=== PATIENT | male | born 1965 | race African-American/Black ===

== ENCOUNTER 2017-09-23 09:27 | Inpatient (IN) | payer MEDICAID, OTHER ==
[~2017-09-23] VITALS: Ht 177.8 cm; Wt 81.6 kg
[2017-09-23] MEDS ORDERED: LISINOPRIL10 MG ORAL (09:41)
[2017-09-23 09:45] VITALS: BP 160/120
--- NOTE | 2017-09-23 09:50 | Emergency Room Report ---
History of Present Illness General Chief Complaint: Chest Pain Source: Patient, EMS Present Illness HPI 52YOM BIBEMS for SOB for 1 week He states he hasn't taken his medication in over a month, meds for CHF, hypertension. Hhe takes fosinopril, may be used to take water pill not sure. Patient states shortness of breath worse when he lays down, rides his bike or walks multiple blocks. Denies associated fever, chills, cough, abdominal pain, nausea or vomiting. Repeatedly asking for sandwich Allergies: Coded Allergies: No Known Allergies (Verified , 04/20/11) Patient History Past Medical History: HTN, CHF Past Surgical History: none Pertinent Family History: none Social History: Denies: smoking, alcohol use, drug use Immunizations: UTD Reviewed Nursing Documentation: PMH: Agreed; PSxH: Agreed Nursing Documentation-PMH Past Medical History: No History, Except For Hx Hypertension: Yes Review of Systems All Other Systems: negative except mentioned in HPI Physical Exam Vital Signs Date Time Temp Pulse Resp B/P (MAP) Pulse Ox O2 Delivery O2 Flow Rate FiO2 09/23/17 09:19 98.1 102 22 148/108 98 Room Air 98.1 Sp02 EP Interpretation: reviewed, normal General Appearance: normal inspection, well appearing, no apparent distress, alert, GCS 15, non-toxic, other - Well appearing, no acut Head: normocephalic, atraumatic Eyes: bilateral eye PERRL, bilateral eye EOMI ENT: normal ENT inspection, hearing grossly normal, normal pharynx, no angioedema, normal voice, TMs + canals normal, uvula midline, moist mucus membranes Neck: normal inspection, full range of motion, supple, thyroid normal, no meningismus, no bony tend Respiratory: normal inspection, lungs clear, normal breath sounds, no rhonchi, no respiratory distress, no retraction, no accessory muscle use, no wheezing, speaking full sentences Cardiovascular #1: regular rate, rhythm, no edema, no JVD, normal capillary refill Gastrointestinal: normal inspection, normal bowel sounds, non tender, soft, no mass, no peritonitis, non-distended, no guarding, no hernia, no pulsatile mass Genitourinary: no CVA tenderness Musculoskeletal: normal inspection, back normal, normal range of motion, no calf tenderness, pelvis stable, Vanessa's Sign negative Neurologic: normal inspection, alert, oriented x3, responsive, librarian specialist III-XII nml as tested, motor strength/tone normal, cerebellar normal, normal gait, speech normal Psychiatric: normal inspection, judgement/insight normal, mood/affect normal, no suicidal/homicidal ideation, no delusions Skin: normal inspection, normal color, no rash Lymphatic: normal inspection, no adenopathy Medical Decision Making Diagnostic Impression: Primary Impression: SOB (shortness of breath) Additional Impressions: HTN (hypertension) Qualified Codes: I10 - Essential (primary) hypertension Cocaine abuse Amphetamine abuse ER Course Vital signs significant for tachycardia On exam, no acute distress, no wheezing rales or rhonchi. No accessory muscle use Unlikely to be in flash pulmonary edema or significant CHF Was given dose of Lisinopril that he takes and refill for Lisinopril for 2 weeks Trop+ Cocaine, meth+ - likely cause of tachycardia Elevated BNP however 100% on RA, not hypoxic, and no acute CHF on CXR No acute ischemia on ECG Was given ASA, IV ativan Tele Admit for cocaine chest pain/ACS rule out Dr Arnold for Dr Wright as per insurance, endorsed [id number] EKG Diagnostic Results Rate: tachycardiac Rhythm: NSR ST Segments: no acute changes ASA given to the pt in ED: Yes Rhythm Strip Diag. Results EP Interpretation: yes Rate: 116 Rhythm: NSR Chest X-Ray Diagnostic Results Chest X-Ray Diagnostic Results : Chest X-Ray Ordered: Yes # of Views/Limited/Complete: 1 View Indication: Chest Pain EP Interpretation: Yes Interpretation: no consolidation, no effusion, no pneumothorax, no acute cardiopulmonary disease Impression: No acute disease Electronically Signed by: Dr Maria Elena López MD Last Vital Signs Date Time Temp Pulse Resp B/P (MAP) Pulse Ox O2 Delivery O2 Flow Rate FiO2 09/23/17 09:45 118 30 160/120 97 Room Air 09/23/17 09:19 98.1 98.1 Status: improved Disposition: ADMITTED INPATIENT Condition: Serious MARIA ELENA LÓPEZ M.D. Sep 23, 2017 09:50
[2017-09-23 10:04] LABS: EOSINOPHILS % (AUTO) 0.5 % (0.0-3.0); HEMATOCRIT 43.4 % (42.0-52.0); HEMOGLOBIN 14.6 G/DL (14.2-18.0); LYMPHOCYTES % (AUTO) 22.2 % (20.0-45.0); MEAN CORPUSCULAR VOLUME 84 FL (80-99); NEUTROPHILS % (AUTO) 71.2 % (45.0-75.0); PLATELET COUNT 376 K/UL (150-450); RED BLOOD COUNT 5.16 M/UL (4.70-6.10); RED CELL DISTRIBUTION WIDTH 13.2 % (11.6-14.8); WHITE BLOOD COUNT 9.9 K/UL (4.8-10.8)
[2017-09-23] MEDS ORDERED: Lisinopril 10mg tab ORAL ONE (10:15)
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
[2017-09-23 10:29] LABS: ANION GAP 6 mmol/L (5-15); BLOOD UREA NITROGEN 12 mg/dL (7-18); CALCIUM 8.6 MG/DL (8.5-10.1); CARBON DIOXIDE 29 MMOL/L (21-32); CHLORIDE 108 MMOL/L (98-107); POTASSIUM 3.7 MMOL/L (3.5-5.1); SODIUM 143 MMOL/L (136-145)
[2017-09-23] MEDS ORDERED: LORazepam Inj 2mg/ml 1ml IV ONE ×2 (10:45→11:45)
[2017-09-23 10:46] LABS: ALANINE AMINOTRANSFERASE 91 U/L (12-78); ALBUMIN 3.2 G/DL (3.4-5.0); ALBUMIN/GLOBULIN RATIO 0.9 (1.0-2.7); ALKALINE PHOSPHATASE 104 U/L (46-116); ASPARTATE AMINO TRANSFERASE 38 U/L (15-37); BILIRUBIN,TOTAL 0.8 MG/DL (0.2-1.0); CREATINE KINASE 147 U/L (26-308)
[2017-09-23 12:07] VITALS: BP 154/125
[2017-09-23] MEDS ORDERED: LORazepam Inj 2mg/ml 1ml IV PRN (14:00)
[2017-09-23] MEDS ORDERED: Nitroglycerin Subl 0.4mg tab SL PRN (14:00)
--- NOTE | 2017-09-23 19:45 | History and Physical Report ---
DATE OF ADMISSION: 09/23/2017 CHIEF COMPLAINT: The patient is a 52-year-old male who presents with chief complaint of shortness of breath. HISTORY OF PRESENT ILLNESS: The patient has a history of congestive heart failure. The patient states he ran out of his medications a month ago. The patient states over the last month, he has become increasingly short of breath. The patient is unable to walk for more than half a block without becoming short of breath. The patient states he is unable to ride his bike. The patient presented to [facility] emergency room. The patient was found to have elevated BNP. The patient was also found to have elevated troponin. The patient was admitted for acute exacerbation of congestive heart failure. PAST MEDICAL HISTORY: Significant for: 1. Congestive heart failure. 2. Hypertension. PAST SURGICAL HISTORY: The patient denies. CURRENT MEDICATIONS: The patient denies. ALLERGIES: No known drug allergies. SOCIAL HISTORY: The patient is . The patient denies tobacco or alcohol use. REVIEW OF SYSTEMS: CONSTITUTIONAL: The patient denies weight loss or weight gain. The patient denies fevers or chills. HEENT: The patient denies ear or throat pain. The patient denies headache. CARDIOVASCULAR: The patient denies palpitations or chest pain. CHEST: The patient complains of shortness of breath as above. The patient denies wheezes. ABDOMEN: The patient denies nausea, vomiting, diarrhea, or constipation. GENITOURINARY: The patient denies dysuria or increased frequency of urination. NEUROMUSCULAR: The patient denies seizures or generalized weakness. PHYSICAL EXAMINATION: VITAL SIGNS: Temperature 98.1 degrees, respirations 22, pulse 102 to 120, and blood pressure 148/108. GENERAL: The patient is a well-developed, well-nourished male who is in moderate respiratory distress. HEENT: Eyes, pupils are equal and responsive to light and accommodation. Extraocular movements are intact. NECK: Supple without lymphadenopathy. CHEST: Few crackles at bilateral bases. Otherwise, without wheezes or rales. CARDIOVASCULAR: Regular rhythm. Tachycardic. S1 and S2 are normal without murmurs, rubs, or gallops. ABDOMEN: Soft, nontender, and nondistended. Positive bowel sounds. No evidence of hepatosplenomegaly. No rebound or guarding noted. RECTAL: Refused. GENITAL: Refused. EXTREMITIES: Negative for clubbing, cyanosis, or edema. NEUROLOGICAL: Cranial nerves II through XII grossly intact without focal deficits. Motor strength is 5/5 bilaterally intact. Deep tendon reflexes are 2+ plantar. LABORATORY STUDIES: WBC 9.9, hemoglobin 14.6, hematocrit 43.4, and platelets 376,000. Sodium 143, potassium 3.7, chloride 108, CO2 29, BUN 12, creatinine 1.0, and glucose 107. Troponin elevated at 0.17. BNP elevated at 9173. Chest x-ray failed to demonstrate pulmonary vascular congestion. ASSESSMENT: This is a 52-year-old male with: 1. Shortness of breath. 2. Acute exacerbation of congestive heart failure. 3. Elevated troponin. 4. Hypertension. 5. Tachycardia. TREATMENT: 1. Congestive heart failure/elevated troponin/tachycardia. Cardiology consultation was obtained with Dr. Eder Lopez. We will follow recommendations of Cardiology. The patient may require Lasix as he did not receive Lasix in the emergency room. 2. Hypertension. The patient has been started empirically on lisinopril. Raul Blount M.D. DR: Alli JOB#: [id number] CC:
[2017-09-23] MEDS: Spironolactone 25mg tab ORAL SCH (19:47)
[2017-09-23 20:00] VITALS: BP 158/116
[2017-09-23] MEDS: Atorvastatin 20mg tab ORAL SCH (21:49)
[2017-09-23] MEDS: Heparin 5000 units/ml inj SUBQ SCH (21:50)
[2017-09-24] VITALS: BP 167/99
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
[2017-09-24 04:00] VITALS: BP 151/89
[2017-09-24 07:07] LABS: BASOPHILS % (AUTO) 1.2 % (0.0-2.0); EOSINOPHILS % (AUTO) 0.9 % (0.0-3.0); HEMATOCRIT 42.8 % (42.0-52.0); LYMPHOCYTES % (AUTO) 24.5 % (20.0-45.0); MEAN CORPUSCULAR VOLUME 83 FL (80-99); MONOCYTES % (AUTO) 4.8 % (1.0-10.0); NEUTROPHILS % (AUTO) 68.7 % (45.0-75.0); PLATELET COUNT 359 K/UL (150-450); RED BLOOD COUNT 5.19 M/UL (4.70-6.10); RED CELL DISTRIBUTION WIDTH 13.1 % (11.6-14.8); WHITE BLOOD COUNT 11.7 K/UL (4.8-10.8)
[2017-09-24 07:23] LABS: ALANINE AMINOTRANSFERASE 63 U/L (12-78); ALBUMIN 2.8 G/DL (3.4-5.0); ALBUMIN/GLOBULIN RATIO 0.8 (1.0-2.7); ALKALINE PHOSPHATASE 97 U/L (46-116); ANION GAP 8 mmol/L (5-15); ASPARTATE AMINO TRANSFERASE 27 U/L (15-37); BLOOD UREA NITROGEN 14 mg/dL (7-18); CALCIUM 8.6 MG/DL (8.5-10.1); CARBON DIOXIDE 26 MMOL/L (21-32); CHLORIDE 106 MMOL/L (98-107); CHOLESTEROL 131 MG/DL (< 200); HDL CHOLESTEROL 57 MG/DL (40-60); POTASSIUM 3.5 MMOL/L (3.5-5.1); SODIUM 140 MMOL/L (136-145); TRIGLYCERIDES 39 MG/DL (30-150)
[2017-09-24 08:00] VITALS: BP 146/83
[2017-09-24] MEDS ORDERED: Lisinopril 10mg tab ORAL SCH (09:00)
[2017-09-24] MEDS: Spironolactone 25mg tab ORAL SCH (09:24)
[2017-09-24] MEDS: Aspirin Baby 81mg ORAL SCH (09:24)
[2017-09-24] MEDS: Heparin 5000 units/ml inj SUBQ SCH ×2 (09:26→21:21)
[2017-09-24 11:48] VITALS: BP 148/100
[2017-09-24 15:50] VITALS: BP 147/99
[2017-09-24 20:00] VITALS: BP 137/94
--- NOTE | 2017-09-24 21:17 | Cardiology Progress Note ---
Assessment/Plan Assessment/Plan 1. Acute systolic and diastolic heart failure, LVEF at 25% to 30%. Continue optimizing GDMT, daily BNP. 2. 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 However, cannot rule out non-ST elevation myocardial infarction type 2, although ECG does not show any evidence of ST- segment depression or T-wave inversions. Continue ASA and coreg. 3. Sinus tachycardia due to heart failure. Subjective Subjective Sinus tachycardia at 114. Objective Last 24 Hour Vital Signs Date Time Temp Pulse Resp B/P (MAP) Pulse Ox O2 Delivery O2 Flow Rate FiO2 09/24/17 15:50 98.3 114 19 147/99 98 Room Air 98.3 09/24/17 15:30 108 09/24/17 12:00 115 09/24/17 11:48 97.4 108 20 148/100 99 Room Air 97.4 09/24/17 09:24 100 09/24/17 09:24 100 146/83 09/24/17 09:24 146/83 09/24/17 08:00 97.8 100 19 146/83 97 Room Air 97.8 09/24/17 08:00 116 09/24/17 04:00 111 09/24/17 04:00 97.0 111 18 151/89 95 Room Air 97.0 09/24/17 00:00 98.0 114 20 167/99 95 Room Air 98.0 09/24/17 00:00 108 09/23/17 21:49 120 158/116 Intake and Output 09/23/17 09/24/17 19:00 07:00 Intake Total 480 ml 240 ml Output Total 800 ml Balance 480 ml -560 ml Intake Oral 480 ml 240 ml Output Urine Total 800 ml # Voids 1 # Bowel Movements 1 2D Echo: EF~25%, anteroseptal HK, RVSP 53 mmHg, Mod MR, Grade III LVDD ( restrictive) Laboratory Tests Test 09/24/17 06:50 White Blood Count 11.7 K/UL (4.8-10.8) H Red Blood Count 5.19 M/UL (4.70-6.10) Hemoglobin 15.0 G/DL (14.2-18.0) Hematocrit 42.8 % (42.0-52.0) Mean Corpuscular Volume 83 FL (80-99) Mean Corpuscular Hemoglobin 29.0 PG (27.0-31.0) Mean Corpuscular Hemoglobin Concent 35.1 G/DL (32.0-36.0) Red Cell Distribution Width 13.1 % (11.6-14.8) Platelet Count 359 K/UL (150-450) Mean Platelet Volume 6.5 FL (6.5-10.1) Neutrophils (%) (Auto) 68.7 % (45.0-75.0) Lymphocytes (%) (Auto) 24.5 % (20.0-45.0) Monocytes (%) (Auto) 4.8 % (1.0-10.0) Eosinophils (%) (Auto) 0.9 % (0.0-3.0) Basophils (%) (Auto) 1.2 % (0.0-2.0) Sodium Level 140 MMOL/L (136-145) Potassium Level 3.5 MMOL/L (3.5-5.1) Chloride Level 106 MMOL/L (98-107) Carbon Dioxide Level 26 MMOL/L (21-32) Anion Gap 8 mmol/L (5-15) Blood Urea Nitrogen 14 mg/dL (7-18) Creatinine 1.0 MG/DL (0.55-1.30) Estimat Glomerular Filtration Rate > 60 mL/min (>60) Glucose Level 101 MG/DL (74-106) Calcium Level 8.6 MG/DL (8.5-10.1) Total Bilirubin 1.0 MG/DL (0.2-1.0) Aspartate Amino Transf (AST/SGOT) 27 U/L (15-37) Alanine Aminotransferase (ALT/SGPT) 63 U/L (12-78) Alkaline Phosphatase 97 U/L (46-116) Troponin I 0.061 ng/mL (0.000-0.056) Pro-B-Type Natriuretic Peptide 7879 pg/mL (0-125) H Total Protein 6.2 G/DL (6.4-8.2) L Albumin 2.8 G/DL (3.4-5.0) L Globulin 3.4 g/dL Albumin/Globulin Ratio 0.8 (1.0-2.7) L Triglycerides Level 39 MG/DL (30-150) Cholesterol Level 131 MG/DL (< 200) LDL Cholesterol 78 mg/dL (<100) HDL Cholesterol 57 MG/DL (40-60) Cholesterol/HDL Ratio 2.3 (3.3-4.4) L Hepatitis B Surface Antigen Pending Hepatitis B Core IgM Antibody Pending Hepatitis Be Antigen Pending Hepatitis C Antibody Pending HIV (1&2) Antibody Rapid Negative (NEGATIVE) Objective HEENT: Atraumatic and normocephalic. Anicteric. Pupils are equal, round, and reactive to light and accommodation. Extraocular muscles intact. NECK: There is conjunctival injection. JVP is elevated about 15 cm. No carotid bruit. Carotid upstroke is hyperdynamic. CARDIOVASCULAR: Normal S1 and S2. There is presence of S4 and S3 or summation gallop with tachycardia. I do not appreciate any murmur. LUNGS: Diminished breath sounds in both bases. ABDOMEN: Soft, nontender, and nondistended. No hepatosplenomegaly. Positive bowel sounds. EXTREMITIES: No evidence of edema, clubbing, or cyanosis. ALPHONSO IVEY Sep 24, 2017 21:17
[2017-09-24] MEDS: Atorvastatin 20mg tab ORAL SCH (21:20)
[2017-09-25] VITALS: BP 136/93
[2017-09-25 04:00] VITALS: BP 142/98
[2017-09-25 08:00] VITALS: BP 135/90
--- NOTE | 2017-09-25 08:07 | Cardiology Report ---
APPROVED REPORT EXAM: Two-dimensional and M-mode echocardiogram with Doppler and color Doppler. INDICATION Chest Pain M-Mode DIMENSIONS IVSd1.0 (0.7-1.1cm)Left Atrium (MM)4.6 (1.6-4.0cm) LVDd5.8 (3.5-5.6cm)Aortic Root3.7 (2.0-3.7cm) PWd1.4 (0.7-1.1cm)Aortic Cusp Exc.1.7 (1.5-2.0cm) LVDs4.7 (2.5-4.0cm) PWs1.3 cm Technically difficult study due to poor acoustical windows. Patient moving. Normal left ventricular chamber size. Global left ventricular hypokinesis. Basal anterior septal and posterior dyskinesis. Left ventricular ejection fraction estimated to be 30-35%. Mild left ventricular hypertrophy. No evidence of pericardial or pleural effusion. Left cardiac chamber sizes are within normal limits. Mild right atrial enlargement by 2D. Focal aortic valve sclerosis with adequate cusp excursion. Thickened mitral valve leaflets with normal excursion. Mild mitral annulus and aortic root calcification. Pulmonic valve not well visualized. Normal tricuspid valve structure. IVC dilated at 3.0 cm minimal collapse with respiration indicate increased RA pressure. A color flow and spectral Doppler study was performed and revealed: No aortic regurgitation. Moderate to severe mitral regurgitation. Mitral diastolic velocities suggest reduced left ventricular relaxation c/w diastolic dysfunction grade 3. Mild tricuspid regurgitation. Tricuspid systolic velocities suggests peak right ventricular systolic pressure of 53mmHg Consistent with moderate pulmonary hypertension. Pulmonic regurgitation present.
[2017-09-25] MEDS ORDERED: Lisinopril 20mg tab ORAL SCH (09:00)
[2017-09-25] MEDS ORDERED: Carvedilol 6.25mg Tab ORAL SCH (09:00)
[2017-09-25] MEDS: Aspirin Baby 81mg ORAL SCH (10:39)
[2017-09-25] MEDS: Spironolactone 25mg tab ORAL SCH (10:40)
[2017-09-25] MEDS: Heparin 5000 units/ml inj SUBQ SCH (10:42)
[2017-09-25 10:53] VITALS: BP 135/90
[2017-09-25 11:13] LABS: BASOPHILS % (AUTO) 0.8 % (0.0-2.0); EOSINOPHILS % (AUTO) 0.4 % (0.0-3.0); HEMATOCRIT 43.9 % (42.0-52.0); HEMOGLOBIN 15.7 G/DL (14.2-18.0); LYMPHOCYTES % (AUTO) 15.5 % (20.0-45.0); MEAN CORPUSCULAR VOLUME 84 FL (80-99); MONOCYTES % (AUTO) 3.9 % (1.0-10.0); NEUTROPHILS % (AUTO) 79.4 % (45.0-75.0); PLATELET COUNT 375 K/UL (150-450); RED BLOOD COUNT 5.24 M/UL (4.70-6.10); WHITE BLOOD COUNT 14.5 K/UL (4.8-10.8)
[2017-09-25 11:35] LABS: ALANINE AMINOTRANSFERASE 48 U/L (12-78); ALBUMIN 2.9 G/DL (3.4-5.0); ALKALINE PHOSPHATASE 106 U/L (46-116); ANION GAP 8 mmol/L (5-15); ASPARTATE AMINO TRANSFERASE 21 U/L (15-37); BILIRUBIN,TOTAL 0.7 MG/DL (0.2-1.0); BLOOD UREA NITROGEN 21 mg/dL (7-18); CARBON DIOXIDE 27 MMOL/L (21-32); CHLORIDE 106 MMOL/L (98-107); CREATININE 1.1 MG/DL (0.55-1.30); POTASSIUM 4.2 MMOL/L (3.5-5.1); SODIUM 140 MMOL/L (136-145)
[2017-09-25] MEDS ORDERED: LISINOPRIL20 MG ORAL (12:15)
[2017-09-25] MEDS ORDERED: LANOXIN250 MCG ORAL (12:15)
[2017-09-25] MEDS ORDERED: ASPIRIN81 MG ORAL (12:15)
[2017-09-25] MEDS ORDERED: COREG6.25 MG ORAL (12:15)
--- NOTE | 2017-09-25 12:17 | Pulmonology Progress Note ---
Assessment/Plan Problems: (1) End-stage systolic heart failure (2) Dyspnea Assessment/Plan echo noted prescription given pt was advised to avoid Crack and cocaine. Subjective ROS Limited/Unobtainable: No Interval Events: feeling better Allergies: Coded Allergies: No Known Allergies (Verified , 04/20/11) Objective Last 24 Hour Vital Signs Date Time Temp Pulse Resp B/P (MAP) Pulse Ox O2 Delivery O2 Flow Rate FiO2 09/25/17 11:32 110 09/25/17 10:54 97.5 09/25/17 10:53 100 135/90 09/25/17 10:52 100 09/25/17 10:40 135/90 09/25/17 08:31 103 09/25/17 08:26 97.5 09/25/17 08:00 97.3 114 19 135/90 100 Room Air 97.3 09/25/17 06:33 142/98 09/25/17 04:00 107 09/25/17 04:00 97.5 110 20 142/98 98 Room Air 97.5 09/25/17 01:03 147/99 09/25/17 00:00 97.3 91 19 136/93 98 Room Air 97.3 09/25/17 00:00 91 09/24/17 21:30 147/99 09/24/17 20:00 97.7 107 18 137/94 98 Room Air 97.7 09/24/17 20:00 107 09/24/17 15:50 98.3 114 19 147/99 98 Room Air 98.3 09/24/17 15:30 108 Intake and Output 09/24/17 09/25/17 19:00 07:00 Intake Total 1050 ml 640 ml Output Total 400 ml Balance 1050 ml 240 ml Intake Oral 1050 ml 640 ml Output Urine Total 400 ml # Voids 5 General Appearance: cachetic HEENT: normocephalic, atraumatic Respiratory/Chest: chest wall non-tender, lungs clear Cardiovascular: normal peripheral pulses, normal rate Abdomen: normal bowel sounds, soft, non tender, no organomegaly Extremities: no cyanosis, no clubbing Skin: no ulcers Neurologic/Psychiatric: test department helper II-XII grossly normal Laboratory Tests 09/25/17 10:30: White Blood Count 14.5H, Red Blood Count 5.24, Hemoglobin 15.7, Hematocrit 43.9 , Mean Corpuscular Volume 84, Mean Corpuscular Hemoglobin 29.9, Mean Corpuscular Hemoglobin Concent 35.8, Red Cell Distribution Width 13.0, Platelet Count 375, Mean Platelet Volume 6.5, Neutrophils (%) (Auto) 79.4H, Lymphocytes ( %) (Auto) 15.5L, Monocytes (%) (Auto) 3.9, Eosinophils (%) (Auto) 0.4, Basophils (%) (Auto) 0.8, Sodium Level 140, Potassium Level 4.2, Chloride Level 106, Carbon Dioxide Level 27, Anion Gap 8, Blood Urea Nitrogen 21H, Creatinine 1.1, Estimat Glomerular Filtration Rate > 60, Glucose Level 123H, Calcium Level 9.0, Magnesium Level 1.8, Total Bilirubin 0.7, Aspartate Amino Transf (AST/SGOT ) 21, Alanine Aminotransferase (ALT/SGPT) 48, Alkaline Phosphatase 106, Troponin I 0.047, Total Protein 5.9L, Albumin 2.9L, Globulin 3.0, Albumin/ Globulin Ratio 1.0 Current Medications Medications (Trade) Dose Ordered Sig/Malvin Route PRN Reason Start Time Stop Time Status Last Admin Dose Admin Acetaminophen (Tylenol) 650 mg Q6H PRN ORAL Mild Pain/Temp > 100.5 09/25/17 07:30 10/25/17 07:29 09/25/17 08:26 Aspirin (ASA) 81 mg DAILY ORAL 09/24/17 09:00 10/24/17 08:59 09/25/17 10:39 Atorvastatin Calcium (Lipitor) 80 mg BEDTIME ORAL 09/23/17 21:00 10/23/17 20:59 09/24/17 21:20 Carvedilol (Coreg) 6.25 mg EVERY 12 HOURS ORAL 09/25/17 09:00 10/25/17 08:59 09/25/17 10:53 Clonidine HCl (Catapres Tab) 0.1 mg Q6H PRN ORAL SBP>160 09/23/17 18:45 10/23/17 18:44 Clonidine HCl (Catapres Tab) 0.1 mg Q8H PRN ORAL High Blood Pressure SBP >175 09/23/17 14:00 10/23/17 13:59 Digoxin (Lanoxin) 0.25 mg DAILY ORAL 09/23/17 19:15 10/23/17 19:14 09/25/17 10:52 Furosemide (Lasix) 40 mg EVERY 12 HOURS IV 09/25/17 09:00 10/25/17 08:59 Heparin Sodium (Porcine) (Heparin 5000 units/ml) 5,000 units EVERY 12 HOURS SUBQ 09/23/17 21:00 10/23/17 20:59 09/25/17 10:42 Isosorbide Dinitrate (Isordil) 10 mg Q6HR ORAL 09/24/17 21:30 10/24/17 21:29 09/25/17 06:33 Lisinopril (Prinivil) 20 mg BID ORAL 09/25/17 09:00 10/25/17 08:59 09/25/17 10:40 Lorazepam (Ativan 2mg/ml 1ml) 1 mg Q8H PRN IV For Anxiety 09/23/17 14:00 09/30/17 13:59 Nitroglycerin (Ntg) 0.4 mg Q5M PRN SL Prn Chest Pain 09/23/17 14:00 10/23/17 13:59 Spironolactone (Aldactone) 25 mg DAILY ORAL 09/23/17 18:30 10/23/17 18:29 09/25/17 10:40 Nicci Wright MD Sep 25, 2017 12:17
--- NOTE | 2017-09-25 18:14 | Cardiology Progress Note ---
Assessment/Plan Assessment/Plan 1. Acute systolic and diastolic heart failure, LVEF at 25% to 30%. Continue optimizing GDMT, daily BNP. 2. 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 However, cannot rule out non-ST elevation myocardial infarction type 2, although ECG does not show any evidence of ST- segment depression or T-wave inversions. Continue ASA and coreg. 3. Sinus tachycardia due to heart failure. Subjective Subjective Sinus tachycardia at 103. Objective Last 24 Hour Vital Signs Date Time Temp Pulse Resp B/P (MAP) Pulse Ox O2 Delivery O2 Flow Rate FiO2 09/25/17 11:32 110 09/25/17 10:54 97.5 09/25/17 10:53 100 135/90 09/25/17 10:52 100 09/25/17 10:40 135/90 09/25/17 08:31 103 09/25/17 08:26 97.5 09/25/17 08:00 97.3 114 19 135/90 100 Room Air 97.3 09/25/17 06:33 142/98 09/25/17 04:00 107 09/25/17 04:00 97.5 110 20 142/98 98 Room Air 97.5 09/25/17 01:03 147/99 09/25/17 00:00 97.3 91 19 136/93 98 Room Air 97.3 09/25/17 00:00 91 09/24/17 21:30 147/99 09/24/17 20:00 97.7 107 18 137/94 98 Room Air 97.7 09/24/17 20:00 107 Intake and Output 09/24/17 09/25/17 19:00 07:00 Intake Total 1050 ml 640 ml Output Total 400 ml Balance 1050 ml 240 ml Intake Oral 1050 ml 640 ml Output Urine Total 400 ml # Voids 5 2D Echo: EF~25%, anteroseptal HK, RVSP 53 mmHg, Mod MR, Grade III LVDD ( restrictive) Laboratory Tests Test 09/25/17 10:30 White Blood Count 14.5 K/UL (4.8-10.8) H Red Blood Count 5.24 M/UL (4.70-6.10) Hemoglobin 15.7 G/DL (14.2-18.0) Hematocrit 43.9 % (42.0-52.0) Mean Corpuscular Volume 84 FL (80-99) Mean Corpuscular Hemoglobin 29.9 PG (27.0-31.0) Mean Corpuscular Hemoglobin Concent 35.8 G/DL (32.0-36.0) Red Cell Distribution Width 13.0 % (11.6-14.8) Platelet Count 375 K/UL (150-450) Mean Platelet Volume 6.5 FL (6.5-10.1) Neutrophils (%) (Auto) 79.4 % (45.0-75.0) H Lymphocytes (%) (Auto) 15.5 % (20.0-45.0) L Monocytes (%) (Auto) 3.9 % (1.0-10.0) Eosinophils (%) (Auto) 0.4 % (0.0-3.0) Basophils (%) (Auto) 0.8 % (0.0-2.0) Sodium Level 140 MMOL/L (136-145) Potassium Level 4.2 MMOL/L (3.5-5.1) Chloride Level 106 MMOL/L (98-107) Carbon Dioxide Level 27 MMOL/L (21-32) Anion Gap 8 mmol/L (5-15) Blood Urea Nitrogen 21 mg/dL (7-18) H Creatinine 1.1 MG/DL (0.55-1.30) Estimat Glomerular Filtration Rate > 60 mL/min (>60) Glucose Level 123 MG/DL (74-106) H Calcium Level 9.0 MG/DL (8.5-10.1) Magnesium Level 1.8 MG/DL (1.8-2.4) Total Bilirubin 0.7 MG/DL (0.2-1.0) Aspartate Amino Transf (AST/SGOT) 21 U/L (15-37) Alanine Aminotransferase (ALT/SGPT) 48 U/L (12-78) Alkaline Phosphatase 106 U/L (46-116) Troponin I 0.047 ng/mL (0.000-0.056) Total Protein 5.9 G/DL (6.4-8.2) L Albumin 2.9 G/DL (3.4-5.0) L Globulin 3.0 g/dL Albumin/Globulin Ratio 1.0 (1.0-2.7) Objective HEENT: Atraumatic and normocephalic. Anicteric. Pupils are equal, round, and reactive to light and accommodation. Extraocular muscles intact. NECK: There is conjunctival injection. JVP is elevated about 15 cm. No carotid bruit. Carotid upstroke is hyperdynamic. CARDIOVASCULAR: Normal S1 and S2. There is presence of S4 and S3 or summation gallop with tachycardia. I do not appreciate any murmur. LUNGS: Diminished breath sounds in both bases. ABDOMEN: Soft, nontender, and nondistended. No hepatosplenomegaly. Positive bowel sounds. EXTREMITIES: No evidence of edema, clubbing, or cyanosis. ALPHONSO IVEY Sep 25, 2017 18:14
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
== END 2017-09-25 15:23 | disposition home or self-care (01) | DRG 194 ==
LOC: EDBD 09:27 → EMR 10:02 → 2E 11:15 → EDBEDREQ 11:47
DX: I11.0 Hypertensive heart disease with heart failure (principal); I27.20 Pulmonary hypertension, unspecified; I42.9 Cardiomyopathy, unspecified; I50.33 Acute on chronic diastolic (congestive) heart failure; J44.1 Chronic obstructive pulmonary disease with (acute) exacerbation; I51.4 Myocarditis, unspecified; E83.42 Hypomagnesemia; R00.0 Tachycardia, unspecified; F15.10 Other stimulant abuse, uncomplicated; F14.10 Cocaine abuse, uncomplicated; I34.0 Nonrheumatic mitral (valve) insufficiency; I42.7 Cardiomyopathy due to drug and external agent; T40.5X5A Adverse effect of cocaine, initial encounter; Y92.89 Other specified places as the place of occurrence of the external cause; T43.625A Adverse effect of amphetamines, initial encounter
CPT/HCPCS: 36415; 71045; 80053; 80061; 80307; 82550; 82553; 83735; 83880; 84484; 85025; 86703; 86705; 86803; 87340; 87350; 93005; 93306

== ENCOUNTER 2017-11-13 08:27 | Inpatient (IN) | payer MEDICAID ==
[~2017-11-13] VITALS: Ht 175.3 cm; Wt 75.6 kg
[~2017-11-13 08:27] MED LIST: ASPIRIN81 MG ORAL; COREG6.25 MG ORAL; FUROSEMIDE20 M1 ORAL; LANOXIN250 MCG ORAL; LISINOPRIL10 MG ORAL; LISINOPRIL20 MG ORAL; LISINOPRIL5 MG ORAL
[2017-11-13 08:29] VITALS: BP 146/116
--- NOTE | 2017-11-13 08:39 | Emergency Room Report ---
History of Present Illness General Chief Complaint: Chest Pain Source: Patient, EMS Present Illness HPI Patient presents with complaints of chest pain or shortness of breath Reports that last night he was having difficulty sleeping Pain is 3 out of 10 heaviness Shortness of breath is worse with laying flat Patient is out of his medications for the past 2 weeks Has not taken any diuretics Patient reports going through a separation and reports that he has been noncompliant and not taking care of himself Review of medical records reveals the patient has EF of 30-35% Was admitted 2 months ago with chest pain and CHF Patient reports hospitalization at [facility] prior to that Allergies: Coded Allergies: No Known Allergies (Verified , 04/20/11) Patient History Past Medical History: see triage record Pertinent Family History: none Reviewed Nursing Documentation: PMH: Agreed; PSxH: Agreed Nursing Documentation-PMH Past Medical History: No History, Except For Hx Cardiac Problems: Yes - CHF Hx Hypertension: Yes Hx Cancer: No Hx Gastrointestinal Problems: No Hx Neurological Problems: No Review of Systems All Other Systems: negative except mentioned in HPI Physical Exam Vital Signs Date Time Temp Pulse Resp B/P (MAP) Pulse Ox O2 Delivery O2 Flow Rate FiO2 11/13/17 08:20 97.6 72 18 151/107 97 Room Air 97.5 Sp02 EP Interpretation: reviewed, normal General Appearance: no apparent distress Head: normocephalic, atraumatic Eyes: bilateral eye PERRL, bilateral eye EOMI ENT: hearing grossly normal, normal pharynx, TMs + canals normal, uvula midline Neck: full range of motion, supple, no meningismus, no bony tend Respiratory: no rhonchi, no respiratory distress, no retraction, no accessory muscle use, crackles - Bilaterally Cardiovascular #1: normal peripheral pulses, regular rate, rhythm, no edema, no gallop, no JVD, no murmur Gastrointestinal: normal bowel sounds, non tender, soft, no mass, no organomegaly, non-distended, no guarding, no hernia, no pulsatile mass, no rebound Genitourinary: no CVA tenderness Musculoskeletal: normal inspection Neurologic: oriented x3, responsive, ichthyology teacher III-XII nml as tested, motor strength/ tone normal, sensory intact Psychiatric: mood/affect normal Skin: normal color, no rash, warm/dry, palpation normal Lymphatic: normal inspection, no adenopathy Medical Decision Making Diagnostic Impression: Primary Impression: ACS (acute coronary syndrome) Additional Impressions: Drug abuse Acute CHF ER Course Patient is a fairly complex patient with multiple differential to consideration including but not limited to cardiac cardiopulmonary and vascular emergencies Patient's x-ray shows concerning findings of CHF Troponin is mildly elevated Patient has been provided aspirin Given the medical history and presentation requires inpatient care Labs Test 11/13/17 08:30 11/13/17 08:45 White Blood Count 10.2 K/UL (4.8-10.8) Red Blood Count 4.73 M/UL (4.70-6.10) Hemoglobin 13.7 G/DL (14.2-18.0) Hematocrit 40.6 % (42.0-52.0) Mean Corpuscular Volume 86 FL (80-99) Mean Corpuscular Hemoglobin 28.9 PG (27.0-31.0) Mean Corpuscular Hemoglobin Concent 33.6 G/DL (32.0-36.0) Red Cell Distribution Width 12.6 % (11.6-14.8) Platelet Count 305 K/UL (150-450) Mean Platelet Volume 6.7 FL (6.5-10.1) Neutrophils (%) (Auto) 71.3 % (45.0-75.0) Lymphocytes (%) (Auto) 22.3 % (20.0-45.0) Monocytes (%) (Auto) 4.7 % (1.0-10.0) Eosinophils (%) (Auto) 0.7 % (0.0-3.0) Basophils (%) (Auto) 1.0 % (0.0-2.0) Sodium Level 143 MMOL/L (136-145) Potassium Level 3.8 MMOL/L (3.5-5.1) Chloride Level 108 MMOL/L (98-107) Carbon Dioxide Level 28 MMOL/L (21-32) Anion Gap 7 mmol/L (5-15) Blood Urea Nitrogen 19 mg/dL (7-18) Creatinine 1.2 MG/DL (0.55-1.30) Estimat Glomerular Filtration Rate > 60 mL/min (>60) Glucose Level 103 MG/DL (74-106) Calcium Level 8.4 MG/DL (8.5-10.1) Total Bilirubin 0.5 MG/DL (0.2-1.0) Aspartate Amino Transf (AST/SGOT) 69 U/L (15-37) Alanine Aminotransferase (ALT/SGPT) 102 U/L (12-78) Alkaline Phosphatase 120 U/L (46-116) Total Creatine Kinase 129 U/L (26-308) Creatine Kinase MB 4.4 NG/ML (0.0-3.6) Creatine Kinase MB Relative Index 3.4 Troponin I 0.067 ng/mL (0.000-0.056) Pro-B-Type Natriuretic Peptide 5595 pg/mL (0-125) Total Protein 6.3 G/DL (6.4-8.2) Albumin 2.9 G/DL (3.4-5.0) Globulin 3.4 g/dL Albumin/Globulin Ratio 0.9 (1.0-2.7) Lipase 102 U/L (73-393) Urine Opiates Screen Negative (NEGATIVE) Urine Barbiturates Screen Negative (NEGATIVE) Phencyclidine (PCP) Screen Negative (NEGATIVE) Urine Amphetamines Screen Positive (NEGATIVE) Urine Benzodiazepines Screen Negative (NEGATIVE) Urine Cocaine Screen Negative (NEGATIVE) Urine Marijuana (THC) Screen Positive (NEGATIVE) EKG Diagnostic Results Rate: normal Rhythm: NSR ST Segments: other - Nonspecific , ST T wave changes, incomplete right bundle- branch block Rhythm Strip Diag. Results EP Interpretation: yes Rate: 87 Rhythm: NSR, no PVC's, no ectopy Chest X-Ray Diagnostic Results Chest X-Ray Diagnostic Results : Chest X-Ray Ordered: Yes # of Views/Limited/Complete: 1 View Indication: Chest Pain EP Interpretation: Yes Interpretation: no consolidation, no pneumothorax, other - Pulmonary congestion, cardiomegaly Impression: Other - Acute CHF Electronically Signed by: Junior Black DO Last Vital Signs Date Time Temp Pulse Resp B/P (MAP) Pulse Ox O2 Delivery O2 Flow Rate FiO2 11/13/17 08:20 97.6 72 18 151/107 97 Room Air 97.5 Status: improved Disposition: ADMITTED INPATIENT Condition: Junior Lopez DO November 13, 2017 08:39
[2017-11-13 08:48] LABS: EOSINOPHILS % (AUTO) 0.7 % (0.0-3.0); HEMATOCRIT 40.6 % (42.0-52.0); HEMOGLOBIN 13.7 G/DL (14.2-18.0); LYMPHOCYTES % (AUTO) 22.3 % (20.0-45.0); MEAN CORPUSCULAR VOLUME 86 FL (80-99); MONOCYTES % (AUTO) 4.7 % (1.0-10.0); NEUTROPHILS % (AUTO) 71.3 % (45.0-75.0); PLATELET COUNT 305 K/UL (150-450); RED BLOOD COUNT 4.73 M/UL (4.70-6.10); RED CELL DISTRIBUTION WIDTH 12.6 % (11.6-14.8); WHITE BLOOD COUNT 10.2 K/UL (4.8-10.8)
[2017-11-13 09:04] LABS: ANION GAP 7 mmol/L (5-15); BLOOD UREA NITROGEN 19 mg/dL (7-18); CALCIUM 8.4 MG/DL (8.5-10.1); CARBON DIOXIDE 28 MMOL/L (21-32); CHLORIDE 108 MMOL/L (98-107); CREATININE 1.2 MG/DL (0.55-1.30); POTASSIUM 3.8 MMOL/L (3.5-5.1); SODIUM 143 MMOL/L (136-145)
[2017-11-13 09:18] LABS: ALANINE AMINOTRANSFERASE 102 U/L (12-78); ALBUMIN 2.9 G/DL (3.4-5.0); ALBUMIN/GLOBULIN RATIO 0.9 (1.0-2.7); ALKALINE PHOSPHATASE 120 U/L (46-116); ASPARTATE AMINO TRANSFERASE 69 U/L (15-37); BILIRUBIN,TOTAL 0.5 MG/DL (0.2-1.0); CKMB 4.4 NG/ML (0.0-3.6); CREATINE KINASE 129 U/L (26-308)
[2017-11-13 10:00] VITALS: BP 127/94
--- NOTE | 2017-11-13 10:35 | Diagnostic Imaging Report ---
Indication: Chest pain Comparison: 09/23/2017 A single view chest radiograph was obtained. Findings: There is evidence of mild interstitial edema prominent vascularity and heart size. IMPRESSION: Mild CHF suspected
[2017-11-13 11:00] VITALS: BP 113/67
[2017-11-13] MEDS: Docusate 100mg cap ORAL SCH ×2 (14:00→21:23)
[2017-11-13] MEDS: Heparin 5000 units/ml inj SUBQ SCH ×3 (14:00→21:40)
[2017-11-13] MEDS: Lisinopril 20mg tab ORAL SCH ×2 (14:00→21:23)
--- NOTE | 2017-11-13 15:07 | Cardiac Electrophysiology PN ---
Subjective Subjective [id number] Objective Last 24 Hour Vital Signs Date Time Temp Pulse Resp B/P (MAP) Pulse Ox O2 Delivery O2 Flow Rate FiO2 11/13/17 12:00 92 11/13/17 11:00 97.5 72 21 113/67 98 Room Air 97.5 11/13/17 10:47 108 11/13/17 10:30 97.5 108 27 127/94 99 Room Air 97.5 11/13/17 10:00 108 27 127/94 99 Room Air 11/13/17 08:29 97.5 105 27 146/116 99 Room Air 97.5 11/13/17 08:29 72 18 Room Air 11/13/17 08:20 97.6 72 18 151/107 97 Room Air 97.5 Laboratory Tests Test 11/13/17 08:30 11/13/17 08:45 White Blood Count 10.2 K/UL (4.8-10.8) Red Blood Count 4.73 M/UL (4.70-6.10) Hemoglobin 13.7 G/DL (14.2-18.0) L Hematocrit 40.6 % (42.0-52.0) L Mean Corpuscular Volume 86 FL (80-99) Mean Corpuscular Hemoglobin 28.9 PG (27.0-31.0) Mean Corpuscular Hemoglobin Concent 33.6 G/DL (32.0-36.0) Red Cell Distribution Width 12.6 % (11.6-14.8) Platelet Count 305 K/UL (150-450) Mean Platelet Volume 6.7 FL (6.5-10.1) Neutrophils (%) (Auto) 71.3 % (45.0-75.0) Lymphocytes (%) (Auto) 22.3 % (20.0-45.0) Monocytes (%) (Auto) 4.7 % (1.0-10.0) Eosinophils (%) (Auto) 0.7 % (0.0-3.0) Basophils (%) (Auto) 1.0 % (0.0-2.0) Sodium Level 143 MMOL/L (136-145) Potassium Level 3.8 MMOL/L (3.5-5.1) Chloride Level 108 MMOL/L (98-107) H Carbon Dioxide Level 28 MMOL/L (21-32) Anion Gap 7 mmol/L (5-15) Blood Urea Nitrogen 19 mg/dL (7-18) H Creatinine 1.2 MG/DL (0.55-1.30) Estimat Glomerular Filtration Rate > 60 mL/min (>60) Glucose Level 103 MG/DL (74-106) Calcium Level 8.4 MG/DL (8.5-10.1) L Total Bilirubin 0.5 MG/DL (0.2-1.0) Aspartate Amino Transf (AST/SGOT) 69 U/L (15-37) H Alanine Aminotransferase (ALT/SGPT) 102 U/L (12-78) H Alkaline Phosphatase 120 U/L (46-116) H Total Creatine Kinase 129 U/L (26-308) Creatine Kinase MB 4.4 NG/ML (0.0-3.6) H Creatine Kinase MB Relative Index 3.4 Troponin I 0.067 ng/mL (0.000-0.056) Pro-B-Type Natriuretic Peptide 5595 pg/mL (0-125) H Total Protein 6.3 G/DL (6.4-8.2) L Albumin 2.9 G/DL (3.4-5.0) L Globulin 3.4 g/dL Albumin/Globulin Ratio 0.9 (1.0-2.7) L Lipase 102 U/L (73-393) Urine Opiates Screen Negative (NEGATIVE) Urine Barbiturates Screen Negative (NEGATIVE) Phencyclidine (PCP) Screen Negative (NEGATIVE) Urine Amphetamines Screen Positive (NEGATIVE) H Urine Benzodiazepines Screen Negative (NEGATIVE) Urine Cocaine Screen Negative (NEGATIVE) Urine Marijuana (THC) Screen Positive (NEGATIVE) H Eder Pandya MD November 13, 2017 15:07
--- NOTE | 2017-11-13 19:30 | History and Physical Report ---
DATE OF ADMISSION: 11/13/2017 REASON FOR ADMISSION: 1. Acute coronary syndrome/chest pain. 2. Substance abuse. 3. Difficulty breathing. HISTORY OF PRESENT ILLNESS: The patient is a 52-year-old gentleman who presented to the emergency room for further evaluation and care of chest pain and shortness of breath. He had been complaining of difficulty sleeping with pain in the chest 3/10 with some pressure and he was having difficulty lying flat. The patient does have an ejection fraction of 30% to 35% and previous admissions for CHF and chest pain. The patient is positive for polysubstance abuse of marijuana and amphetamines. The patient says that he does methamphetamines on a regular basis and smokes marijuana everyday. He also notes that he has not taken any of his antihypertensive or cardiac medications for over 2 weeks. He denies any recurrent nausea, vomiting, or diarrhea. The patient says that prior to this, his hospitalizations have been at [facility] and he had been told that he had a stiff heart, which was weak. PAST MEDICAL HISTORY: 1. CHF. 2. Polysubstance abuse. 3. Hypertension. 4. Ejection fraction 30% to 35%. PAST SURGICAL HISTORY: Noncontributory. SOCIAL HISTORY: Positive for tobacco, marijuana, and illicit methamphetamine use. The patient denies any crack or heroin. FAMILY HISTORY: Positive for hypertension. REVIEW OF SYSTEMS: NEUROLOGIC: The patient denies headache, change in vision, syncope, or presyncopal episodes. CARDIOVASCULAR: The patient was having some chest pressure and pain. PULMONARY: Mild shortness of breath. Nonproductive cough. GASTROINTESTINAL/GENITOURINARY: No changes in urinary or bowel habits. No nausea, vomiting, or diarrhea. ENDOCRINOLOGY: No night sweats, fevers or chills. PHYSICAL EXAMINATION: GENERAL: The patient is awake, alert, not otherwise in any distress. VITAL SIGNS: Blood pressure 113/67, respiratory rate 21, pulse 72, temperature 97.5 degrees, and 98% saturation on room air. HEENT: Extraocular muscles intact. No lymphadenopathy noted. CARDIOVASCULAR: S1 and S2. No rubs or gallops. PULMONARY: Bilateral basilar rales with fair movement in all lung mendoza with upper airway rhonchi. ABDOMEN: Nondistended and nontender. EXTREMITIES: Trace edema bilaterally. LABORATORY AND DIAGNOSTIC DATA: Labs dated 11/13/2017, sodium 143, potassium 3.8, creatinine 1.2, and BUN 19. Troponin 0.067. Brain-natriuretic peptide 5595. AST 69 and ALT 102. Hemoglobin 13.7, white cell count 10.2, and platelet count 305. Toxicology screen positive for amphetamines and marijuana. ASSESSMENT AND PLAN: 1. Polysubstance abuse with amphetamines and marijuana. At this time, we will use a non-selective beta-brian to avoid unopposed alpha action. As such, Coreg has been initiated along with lisinopril for antihypertensive management. At this time, we will monitor him carefully. The patient denies drinking alcohol on a regular basis and says that he only does methamphetamines and marijuana. 2. Acute coronary syndrome and chest pain with elevated troponin. Cardiology has been consulted. Dr. Pandya to manage and evaluate. 3. Congestive heart failure with volume overload. The patient having difficulty lying flat and mild shortness of breath. The patient will be diuresed and monitored carefully. 4. Deep venous thrombosis prophylaxis with heparin subcutaneous 5000 units q.8 h. Temo Akhtar MD DR: NAYELY JOB#: [id number] CC:
[2017-11-13 20:00] VITALS: BP 145/86
[2017-11-13] MEDS: Carvedilol 6.25mg Tab ORAL SCH (21:24)
[2017-11-14] VITALS: BP 139/101
--- NOTE | 2017-11-14 02:45 | Consultation ---
DATE OF CONSULTATION: 11/13/2017 NOTE: POOR AUDIO CARDIOLOGY CONSULTATION CONSULTING PHYSICIAN: Eder Pandya M.D. REFERRING PHYSICIAN: Mazin Rice M.D. REASON FOR CONSULTATION: Exacerbation of congestive heart failure. HISTORY OF PRESENT ILLNESS: The patient is a 52-year-old gentleman with severe cardiomyopathy, ejection fraction of 25%-30% based on echocardiogram just about two months ago. The patient also had elevated troponin that was from previous admission mainly due to cocaine and amphetamine, cardiomyopathy. The patient was admitted for worsening of the shortness of breath and a Cardiology consultation was obtained for further evaluation and management. At the time of my evaluation, the patient is still very noncompliant, does not take all of his medication. PAST MEDICAL HISTORY: 1. Hypertension. 2. Severe cardiomyopathy, ejection fraction of 25%. FAMILY HISTORY: Noncontributory. SOCIAL HISTORY: He has history of cocaine and amphetamine use in the past. REVIEW OF SYSTEMS: Review of systems was negative other than what was mentioned in the history of present illness. PHYSICAL EXAMINATION: VITAL SIGNS: Blood pressure 130/67, pulse 72, respirations 18, and temperature 97.1 degrees. HEAD AND NECK: Positive JVD. LUNGS: Decreased breath sounds. CARDIOVASCULAR: Regular S1 and S2 with soft systolic murmur at the apex. ABDOMEN: Soft. EXTREMITIES: There is 1+ pitting edema. LABORATORY AND DIAGNOSTIC DATA: His EKG shows a sinus rhythm with left atrial enlargement, incomplete right bundle-branch block. His labs show white count of 10, hemoglobin 13, and hematocrit 40. Sodium 142, potassium 3.8, BUN of 19, creatinine 1.2, and glucose of 103. His troponin is 0.04 and 0.06. His BNP is . His troponin initially was 0.11 and 0.06. His urine toxicology is positive for amphetamine and marijuana. ASSESSMENT AND PLAN: 1. Troponin leak, this is likely due to the patient's use of polysubstance abuse including amphetamine and marijuana. On 09/23/2017, he was positive also for cocaine. positive for cocaine. him on Coreg and increase the Lasix to 40 mg b.i.d. and continue lisinopril 20 mg b.i.d. to his medical regimen. Initial troponin leak, nonspecific likely due to heart failure and polysubstance abuse. His EKG showed no acute ST-T wave abnormality. Echocardiogram showed ejection fraction of only 25%. 2. Hypertension. Continue failure therapy. 3. Noncompliance. Thank you very much, Dr. Rice, for allowing me to participate in the care of this patient. Please do not hesitate to contact me for any questions regarding my evaluation. Eder Pandya M.D. DR: TOAN JOB#: [id number] CC:
[2017-11-14 04:00] VITALS: BP 143/99
[2017-11-14] MEDS: Heparin 5000 units/ml inj SUBQ SCH ×3 (06:00→22:00)
[2017-11-14] MEDS ORDERED: LORazepam Inj 2mg/ml 1ml IV SCH (07:15)
[2017-11-14 08:00] VITALS: BP 157/102
[2017-11-14] MEDS ORDERED: LORazepam 1mg tab ORAL PRN (08:00)
--- NOTE | 2017-11-14 08:10 | Nephrology Progress Note ---
Assessment/Plan Assessment/Plan 1. ACS/Chest Pain- patient known meth addict and daily pot user - Trop I trending down - pain mgmt consulted 2. Anxiety- ativan po until pain management evaluates 3. HTN- stable 4. DVT prophylaxsis with heparin sub q Subjective Date patient seen: November 14, 2017 Time patient seen: 08:04 ROS Limited/Unobtainable: No Allergies: Coded Allergies: No Known Allergies (Verified , 04/20/11) All Systems: reviewed and negative except above Subjective Patient anxious. Requesting narcotics and axiolytics Objective Last 24 Hour Vital Signs Date Time Temp Pulse Resp B/P (MAP) Pulse Ox O2 Delivery O2 Flow Rate FiO2 11/14/17 04:00 97.0 102 22 143/99 100 Nasal Cannula 2.0 97.0 11/14/17 04:00 100 11/14/17 00:00 98.2 111 22 139/101 98 Room Air 98.2 11/14/17 00:00 103 11/13/17 21:24 108 145/86 11/13/17 21:23 145/86 11/13/17 20:00 105 11/13/17 20:00 97.2 108 20 145/86 98 Room Air 97.2 11/13/17 16:00 103 11/13/17 12:00 92 11/13/17 11:00 97.5 72 21 113/67 98 Room Air 97.5 11/13/17 10:47 108 11/13/17 10:30 97.5 108 27 127/94 99 Room Air 97.5 11/13/17 10:00 108 27 127/94 99 Room Air 11/13/17 08:29 97.5 105 27 146/116 99 Room Air 97.5 11/13/17 08:29 72 18 Room Air 11/13/17 08:20 97.6 72 18 151/107 97 Room Air 97.5 Intake and Output 11/13/17 11/14/17 19:00 07:00 Intake Total 360 ml 240 ml Output Total 850 ml 900 ml Balance -490 ml -660 ml Intake Oral 360 ml 240 ml Output Urine Total 850 ml 900 ml # Voids 1 2 Laboratory Tests 11/13/17 08:30: White Blood Count 10.2, Red Blood Count 4.73, Hemoglobin 13.7L, Hematocrit 40.6L , Mean Corpuscular Volume 86, Mean Corpuscular Hemoglobin 28.9, Mean Corpuscular Hemoglobin Concent 33.6, Red Cell Distribution Width 12.6, Platelet Count 305, Mean Platelet Volume 6.7, Neutrophils (%) (Auto) 71.3, Lymphocytes (% ) (Auto) 22.3, Monocytes (%) (Auto) 4.7, Eosinophils (%) (Auto) 0.7, Basophils ( %) (Auto) 1.0, Sodium Level 143, Potassium Level 3.8, Chloride Level 108H, Carbon Dioxide Level 28, Anion Gap 7, Blood Urea Nitrogen 19H, Creatinine 1.2, Estimat Glomerular Filtration Rate > 60, Glucose Level 103, Calcium Level 8.4L, Total Bilirubin 0.5, Aspartate Amino Transf (AST/SGOT) 69H, Alanine Aminotransferase (ALT/SGPT) 102H, Alkaline Phosphatase 120H, Total Creatine Kinase 129, Creatine Kinase MB 4.4H, Creatine Kinase MB Relative Index 3.4, Troponin I 0.067H, Pro-B-Type Natriuretic Peptide 5595H, Total Protein 6.3L, Albumin 2.9L, Globulin 3.4, Albumin/Globulin Ratio 0.9L, Lipase 102 11/13/17 08:45: Urine Opiates Screen Negative, Urine Barbiturates Screen Negative, Phencyclidine (PCP) Screen Negative, Urine Amphetamines Screen PositiveH, Urine Benzodiazepines Screen Negative, Urine Cocaine Screen Negative, Urine Marijuana (THC) Screen PositiveH 11/13/17 16:00: Troponin I 0.059H Height (Feet): 5 Height (Inches): 9.00 Weight (Pounds): 180 General Appearance: WD/WN, no apparent distress EENT: normal ENT inspection, TMs normal Neck: normal alignment, supple Cardiovascular: normal rate, regular rhythm Respiratory/Chest: lungs clear, normal breath sounds Edema: no edema noted Arm (L), no edema noted Arm (R), no edema noted Leg (L), no edema noted Leg (R), no edema noted Pedal (L), no edema noted Pedal (R), no edema noted Generalized Temo Akhtar M.D. November 14, 2017 08:10
[2017-11-14] MEDS: Docusate 100mg cap ORAL SCH ×2 (09:00→20:33)
[2017-11-14 09:07] LABS: BASOPHILS % (AUTO) 0.6 % (0.0-2.0); EOSINOPHILS % (AUTO) 0.4 % (0.0-3.0); HEMATOCRIT 42.4 % (42.0-52.0); LYMPHOCYTES % (AUTO) 17.6 % (20.0-45.0); MEAN CORPUSCULAR VOLUME 84 FL (80-99); MONOCYTES % (AUTO) 4.7 % (1.0-10.0); NEUTROPHILS % (AUTO) 76.7 % (45.0-75.0); PLATELET COUNT 313 K/UL (150-450); RED BLOOD COUNT 5.06 M/UL (4.70-6.10); RED CELL DISTRIBUTION WIDTH 12.4 % (11.6-14.8); WHITE BLOOD COUNT 11.5 K/UL (4.8-10.8)
[2017-11-14] MEDS: Carvedilol 6.25mg Tab ORAL SCH ×2 (09:08→20:33)
[2017-11-14] MEDS: Lisinopril 20mg tab ORAL SCH ×2 (09:08→20:34)
[2017-11-14 09:26] LABS: ALANINE AMINOTRANSFERASE 76 U/L (12-78); ALBUMIN 2.9 G/DL (3.4-5.0); ALBUMIN/GLOBULIN RATIO 0.8 (1.0-2.7); ALKALINE PHOSPHATASE 108 U/L (46-116); ANION GAP 10 mmol/L (5-15); ASPARTATE AMINO TRANSFERASE 29 U/L (15-37); BILIRUBIN,TOTAL 0.8 MG/DL (0.2-1.0); BLOOD UREA NITROGEN 17 mg/dL (7-18); CALCIUM 8.9 MG/DL (8.5-10.1); CARBON DIOXIDE 26 MMOL/L (21-32); CHLORIDE 105 MMOL/L (98-107); CREATININE 1.1 MG/DL (0.55-1.30); POTASSIUM 3.4 MMOL/L (3.5-5.1); SODIUM 141 MMOL/L (136-145)
[2017-11-14 11:44] VITALS: BP 96/59
--- NOTE | 2017-11-14 15:50 | Cardiac Electrophysiology PN ---
Assessment/Plan Assessment/Plan 1. Troponin leak, this is likely due to the patient's use of polysubstance abuse including amphetamine and marijuana as well as heart failure. On 09/23/2017, he was positive also for cocaine. His EKG showed no acute ST-T wave abnormality. Echocardiogram showed ejection fraction of only 25%. 2. CHF EF 25% On Lasix 20 po bid. , lisinopril 20 mg b.i.d. and Coreg 6.25 bid 3. Hypertension. Continue heart failure therapy. 4. Noncompliance. Subjective Subjective No CP or SOB. In sinus tach 90-120s Objective Last 24 Hour Vital Signs Date Time Temp Pulse Resp B/P (MAP) Pulse Ox O2 Delivery O2 Flow Rate FiO2 11/14/17 12:00 105 11/14/17 11:44 97.1 82 18 96/59 95 Room Air 97.1 11/14/17 09:08 104 157/102 11/14/17 09:08 157/102 11/14/17 08:00 96.9 104 18 157/102 96 Room Air 96.9 11/14/17 08:00 114 11/14/17 04:00 97.0 102 22 143/99 100 Nasal Cannula 2.0 97.0 11/14/17 04:00 100 11/14/17 00:00 98.2 111 22 139/101 98 Room Air 98.2 11/14/17 00:00 103 11/13/17 21:24 108 145/86 11/13/17 21:23 145/86 11/13/17 20:00 105 11/13/17 20:00 97.2 108 20 145/86 98 Room Air 97.2 11/13/17 16:00 103 Intake and Output 11/13/17 11/14/17 19:00 07:00 Intake Total 360 ml 240 ml Output Total 850 ml 900 ml Balance -490 ml -660 ml Intake Oral 360 ml 240 ml Output Urine Total 850 ml 900 ml # Voids 1 2 Laboratory Tests Test 11/13/17 16:00 11/14/17 08:35 Troponin I 0.059 ng/mL (0.000-0.056) 0.072 ng/mL (0.000-0.056) White Blood Count 11.5 K/UL (4.8-10.8) H Red Blood Count 5.06 M/UL (4.70-6.10) Hemoglobin 15.0 G/DL (14.2-18.0) Hematocrit 42.4 % (42.0-52.0) Mean Corpuscular Volume 84 FL (80-99) Mean Corpuscular Hemoglobin 29.7 PG (27.0-31.0) Mean Corpuscular Hemoglobin Concent 35.4 G/DL (32.0-36.0) Red Cell Distribution Width 12.4 % (11.6-14.8) Platelet Count 313 K/UL (150-450) Mean Platelet Volume 6.7 FL (6.5-10.1) Neutrophils (%) (Auto) 76.7 % (45.0-75.0) H Lymphocytes (%) (Auto) 17.6 % (20.0-45.0) L Monocytes (%) (Auto) 4.7 % (1.0-10.0) Eosinophils (%) (Auto) 0.4 % (0.0-3.0) Basophils (%) (Auto) 0.6 % (0.0-2.0) Sodium Level 141 MMOL/L (136-145) Potassium Level 3.4 MMOL/L (3.5-5.1) L Chloride Level 105 MMOL/L (98-107) Carbon Dioxide Level 26 MMOL/L (21-32) Anion Gap 10 mmol/L (5-15) Blood Urea Nitrogen 17 mg/dL (7-18) Creatinine 1.1 MG/DL (0.55-1.30) Estimat Glomerular Filtration Rate > 60 mL/min (>60) Glucose Level 127 MG/DL (74-106) H Calcium Level 8.9 MG/DL (8.5-10.1) Total Bilirubin 0.8 MG/DL (0.2-1.0) Aspartate Amino Transf (AST/SGOT) 29 U/L (15-37) Alanine Aminotransferase (ALT/SGPT) 76 U/L (12-78) Alkaline Phosphatase 108 U/L (46-116) Pro-B-Type Natriuretic Peptide 6574 pg/mL (0-125) H Total Protein 6.4 G/DL (6.4-8.2) Albumin 2.9 G/DL (3.4-5.0) L Globulin 3.5 g/dL Albumin/Globulin Ratio 0.8 (1.0-2.7) L Objective HEAD AND NECK: Positive JVD. LUNGS: Decreased breath sounds. CARDIOVASCULAR: Regular S1 and S2 with soft systolic murmur at the apex. ABDOMEN: Soft. EXTREMITIES: 1+ pitting edema. Eder Pandya MD November 14, 2017 15:50
[2017-11-14 16:00] VITALS: BP 141/104
--- NOTE | 2017-11-14 17:27 | Consultation ---
History of Present Illness General Date patient seen: November 14, 2017 Time patient seen: 05:15 - pm Chief Complaint: Chest Pain Referring physician: Dr. Akhtar Reason for Consultation: Pain management Present Illness HPI This is a 52 y/o male being [place] [facility] [place]. Patient was admitted under the care of Dr. Akhtar with c/o chest pain and ACS. He is known to have recreational use of marijuana, methamphetamines and cocaine. At this time patient denies pain or discomfort and says that he is feeling better. Allergies: Coded Allergies: No Known Allergies (Verified , 04/20/11) Medication History Scheduled Aspirin* (Aspirin*), 81 MG ORAL DAILY Carvedilol (Coreg), 6.25 MG ORAL EVERY 12 HOURS Digoxin* (Lanoxin*), 0.25 MG ORAL DAILY Furosemide* (Lasix*), 20 MG ORAL DAILY, (Reported) Lisinopril (Lisinopril*), 20 MG ORAL BID Lisinopril (Lisinopril*), 5 MG ORAL DAILY, (Reported) Lisinopril* (Lisinopril*), 10 MG ORAL DAILY, (Reported) Patient History Healthcare decision maker Resuscitation status Full Code Advanced Directive on File Patient History Narrative 1. CHF. 2. Polysubstance abuse. 3. Hypertension. 4. Ejection fraction 30% to 35%. PAST SURGICAL HISTORY: Noncontributory. SOCIAL HISTORY: Positive for tobacco, marijuana, and illicit methamphetamine use. The patient denies any crack or heroin. Review of Systems Constitutional: Reports: no symptoms Eye: Reports: no symptoms ENT: Reports: no symptoms Respiratory: Reports: no symptoms Cardiovascular: Reports: no symptoms Gastrointestinal: Reports: no symptoms Genitourinary: Reports: no symptoms Musculoskeletal: Reports: no symptoms Skin: Reports: no symptoms Psychiatric: Reports: no symptoms Neurological: Reports: no symptoms Endocrine: Reports: no symptoms Hematologic/Lymphatic: Reports: no symptoms Physical Exam General Appearance: no apparent distress, alert HEENT: PERRL, EOMI Neck: non-tender, normal alignment, normal inspection Respiratory/Chest: lungs clear, normal breath sounds Cardiovascular/Chest: normal rate, regular rhythm Abdomen: non tender, soft Extremities: normal range of motion, non-tender, normal inspection Skin Exam: normal pigmentation, warm/dry Neurologic: alert, oriented x 3 Last 24 Hour Vital Signs Date Time Temp Pulse Resp B/P (MAP) Pulse Ox O2 Delivery O2 Flow Rate FiO2 11/14/17 16:00 102 11/14/17 16:00 96.8 110 18 141/104 95 Room Air 96.8 11/14/17 12:00 105 11/14/17 11:44 97.1 82 18 96/59 95 Room Air 97.1 11/14/17 09:08 104 157/102 11/14/17 09:08 157/102 11/14/17 08:00 96.9 104 18 157/102 96 Room Air 96.9 11/14/17 08:00 114 11/14/17 04:00 97.0 102 22 143/99 100 Nasal Cannula 2.0 97.0 11/14/17 04:00 100 11/14/17 00:00 98.2 111 22 139/101 98 Room Air 98.2 11/14/17 00:00 103 11/13/17 21:24 108 145/86 11/13/17 21:23 145/86 11/13/17 20:00 105 11/13/17 20:00 97.2 108 20 145/86 98 Room Air 97.2 Intake and Output 11/13/17 11/14/17 19:00 07:00 Intake Total 360 ml 240 ml Output Total 850 ml 900 ml Balance -490 ml -660 ml Intake Oral 360 ml 240 ml Output Urine Total 850 ml 900 ml # Voids 1 2 Laboratory Tests Test 11/14/17 08:35 White Blood Count 11.5 K/UL (4.8-10.8) H Red Blood Count 5.06 M/UL (4.70-6.10) Hemoglobin 15.0 G/DL (14.2-18.0) Hematocrit 42.4 % (42.0-52.0) Mean Corpuscular Volume 84 FL (80-99) Mean Corpuscular Hemoglobin 29.7 PG (27.0-31.0) Mean Corpuscular Hemoglobin Concent 35.4 G/DL (32.0-36.0) Red Cell Distribution Width 12.4 % (11.6-14.8) Platelet Count 313 K/UL (150-450) Mean Platelet Volume 6.7 FL (6.5-10.1) Neutrophils (%) (Auto) 76.7 % (45.0-75.0) H Lymphocytes (%) (Auto) 17.6 % (20.0-45.0) L Monocytes (%) (Auto) 4.7 % (1.0-10.0) Eosinophils (%) (Auto) 0.4 % (0.0-3.0) Basophils (%) (Auto) 0.6 % (0.0-2.0) Sodium Level 141 MMOL/L (136-145) Potassium Level 3.4 MMOL/L (3.5-5.1) L Chloride Level 105 MMOL/L (98-107) Carbon Dioxide Level 26 MMOL/L (21-32) Anion Gap 10 mmol/L (5-15) Blood Urea Nitrogen 17 mg/dL (7-18) Creatinine 1.1 MG/DL (0.55-1.30) Estimat Glomerular Filtration Rate > 60 mL/min (>60) Glucose Level 127 MG/DL (74-106) H Calcium Level 8.9 MG/DL (8.5-10.1) Total Bilirubin 0.8 MG/DL (0.2-1.0) Aspartate Amino Transf (AST/SGOT) 29 U/L (15-37) Alanine Aminotransferase (ALT/SGPT) 76 U/L (12-78) Alkaline Phosphatase 108 U/L (46-116) Troponin I 0.072 ng/mL (0.000-0.056) Pro-B-Type Natriuretic Peptide 6574 pg/mL (0-125) H Total Protein 6.4 G/DL (6.4-8.2) Albumin 2.9 G/DL (3.4-5.0) L Globulin 3.5 g/dL Albumin/Globulin Ratio 0.8 (1.0-2.7) L Height (Feet): 5 Height (Inches): 9.00 Weight (Pounds): 180 Medications Current Medications Medications (Trade) Dose Ordered Sig/Malvin Route PRN Reason Start Time Stop Time Status Last Admin Dose Admin Acetaminophen (Tylenol) 650 mg Q4H PRN ORAL Mild Pain (Pain Scale 1-3) 11/13/17 13:30 12/13/17 13:29 Carvedilol (Coreg) 6.25 mg EVERY 12 HOURS ORAL 11/13/17 21:00 12/13/17 20:59 11/14/17 09:08 Dextrose (Dextrose 50%) 25 ml STAT PRN IV Hypoglycemia 11/13/17 12:45 12/13/17 12:44 Dextrose (Dextrose 50%) 50 ml STAT PRN IV Hypoglycemia 11/13/17 12:45 12/13/17 12:44 Diphenhydramine HCl (Benadryl) 25 mg Q6H PRN ORAL Itching/Pruritis 11/13/17 12:45 12/13/17 12:44 Docusate Sodium (Colace) 100 mg EVERY 12 HOURS ORAL 11/13/17 14:00 12/13/17 13:59 11/13/17 21:23 Furosemide (Lasix) 20 mg EVERY 12 HOURS ORAL 11/14/17 09:00 12/14/17 08:59 11/14/17 09:08 Heparin Sodium (Porcine) (Heparin 5000 units/ml) 5,000 units EVERY 8 HOURS SUBQ 11/13/17 14:00 12/13/17 13:59 Lisinopril (Prinivil) 20 mg Q12HR ORAL 11/13/17 14:00 12/13/17 13:59 11/14/17 09:08 Lorazepam (Ativan) 1 mg Q4H PRN ORAL For Anxiety 11/14/17 08:00 11/21/17 07:59 Ondansetron HCl (Zofran) 4 mg Q6H PRN IVP Nausea & Vomiting 11/13/17 12:45 12/13/17 12:44 Potassium Chloride (K-Dur) 40 meq DAILY ORAL 11/14/17 10:30 12/14/17 10:29 11/14/17 11:00 Assessment/Plan Assessment/Plan (1) Chest pain (2) CHF (3) ACS (4) Poly substance abuse At this time patient will be continued on Tylenol as needed. We will sign off from patient care due to patient having no c/o pain. If pain management needed in the future please reconsult. D/w Dr. Ram and he concurred. Thank you for the courtesy of this consultation. ELIAS DUMONT November 14, 2017 17:27
[2017-11-14 20:00] VITALS: BP 153/115
[2017-11-15] VITALS: BP 147/100
[2017-11-15 04:00] VITALS: BP 140/113
[2017-11-15] MEDS: Heparin 5000 units/ml inj SUBQ SCH ×2 (06:00→13:40)
[2017-11-15 06:17] LABS: BASOPHILS % (AUTO) 0.8 % (0.0-2.0); EOSINOPHILS % (AUTO) 0.8 % (0.0-3.0); HEMATOCRIT 45.9 % (42.0-52.0); HEMOGLOBIN 15.5 G/DL (14.2-18.0); LYMPHOCYTES % (AUTO) 26.9 % (20.0-45.0); MEAN CORPUSCULAR VOLUME 84 FL (80-99); MONOCYTES % (AUTO) 3.7 % (1.0-10.0); NEUTROPHILS % (AUTO) 67.9 % (45.0-75.0); PLATELET COUNT 333 K/UL (150-450); RED BLOOD COUNT 5.49 M/UL (4.70-6.10); RED CELL DISTRIBUTION WIDTH 12.2 % (11.6-14.8); WHITE BLOOD COUNT 11.1 K/UL (4.8-10.8)
[2017-11-15 06:28] LABS: ANION GAP 13 mmol/L (5-15); BLOOD UREA NITROGEN 18 mg/dL (7-18); CALCIUM 8.3 MG/DL (8.5-10.1); CARBON DIOXIDE 22 MMOL/L (21-32); CHLORIDE 104 MMOL/L (98-107); CREATININE 1.2 MG/DL (0.55-1.30); SODIUM 139 MMOL/L (136-145)
[2017-11-15 08:00] VITALS: BP 140/105
[2017-11-15] MEDS: Lisinopril 20mg tab ORAL SCH (08:34)
[2017-11-15] MEDS: Carvedilol 6.25mg Tab ORAL SCH (08:34)
[2017-11-15] MEDS: Docusate 100mg cap ORAL SCH (08:36)
--- NOTE | 2017-11-15 09:35 | Discharge Instructions ---
Discharge Instructions Discharge Instructions Call MD/Return to Hospital if: Chest pain or shortness of breath returns Diet: 2 GM sodium (low sodium) Resume Normal Activity?: Yes Activity: resume normal activities Pneumonia Vaccine: vaccine not indicated Influenza Vaccine (Mar to Aug): vaccine not indicated Follow Up Orders 1. 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 Follow up 1-2 weeks with a PCP of his choice For Congestive Heart Failure Reminder Report to your physician any weight gain of 5 pounds or more in one week. Temo Akhtar M.D. November 15, 2017 09:35
[2017-11-15 12:00] VITALS: BP 128/93
--- NOTE | 2017-11-15 13:23 | Cardiac Electrophysiology PN ---
Assessment/Plan Assessment/Plan 1. Troponin leak due to the patient's use of polysubstance abuse including amphetamine and marijuana as well as heart failure. On 09/23/2017, he was positive also for cocaine. His EKG showed no acute ST-T wave abnormality. Echocardiogram showed ejection fraction of only 25%. 2. CHF EF 25% On Lasix 20 po bid. , lisinopril 20 mg b.i.d. and Coreg 6.25 bid 3. Hypertension. Continue heart failure therapy. 4. Noncompliance. JETT RN Subjective Subjective No CP or SOB. DC planning in progress Objective Last 24 Hour Vital Signs Date Time Temp Pulse Resp B/P (MAP) Pulse Ox O2 Delivery O2 Flow Rate FiO2 11/15/17 12:00 97.1 99 21 128/93 99 Room Air 97.1 11/15/17 12:00 113 11/15/17 08:34 102 140/105 11/15/17 08:34 140/105 11/15/17 08:00 120 11/15/17 08:00 97.0 102 19 140/105 98 Room Air 97.0 11/15/17 04:00 98.0 97 20 140/113 95 Room Air 98.0 11/15/17 04:00 105 11/15/17 00:00 96 11/15/17 00:00 97.5 97 20 147/100 100 Room Air 97.5 11/14/17 20:34 153/115 11/14/17 20:33 109 153/115 11/14/17 20:00 108 11/14/17 20:00 97.5 109 20 153/115 100 Room Air 97.5 11/14/17 16:00 102 11/14/17 16:00 96.8 110 18 141/104 95 Room Air 96.8 Intake and Output 11/14/17 11/15/17 19:00 07:00 Intake Total 920 ml Output Total 1150 ml Balance -230 ml Intake Oral 920 ml Output Urine Total 1150 ml # Voids 2 Laboratory Tests Test 11/15/17 05:37 White Blood Count 11.1 K/UL (4.8-10.8) H Red Blood Count 5.49 M/UL (4.70-6.10) Hemoglobin 15.5 G/DL (14.2-18.0) Hematocrit 45.9 % (42.0-52.0) Mean Corpuscular Volume 84 FL (80-99) Mean Corpuscular Hemoglobin 28.2 PG (27.0-31.0) Mean Corpuscular Hemoglobin Concent 33.7 G/DL (32.0-36.0) Red Cell Distribution Width 12.2 % (11.6-14.8) Platelet Count 333 K/UL (150-450) Mean Platelet Volume 7.6 FL (6.5-10.1) Neutrophils (%) (Auto) 67.9 % (45.0-75.0) Lymphocytes (%) (Auto) 26.9 % (20.0-45.0) Monocytes (%) (Auto) 3.7 % (1.0-10.0) Eosinophils (%) (Auto) 0.8 % (0.0-3.0) Basophils (%) (Auto) 0.8 % (0.0-2.0) Sodium Level 139 MMOL/L (136-145) Potassium Level 3.0 MMOL/L (3.5-5.1) L Chloride Level 104 MMOL/L (98-107) Carbon Dioxide Level 22 MMOL/L (21-32) Anion Gap 13 mmol/L (5-15) Blood Urea Nitrogen 18 mg/dL (7-18) Creatinine 1.2 MG/DL (0.55-1.30) Estimat Glomerular Filtration Rate > 60 mL/min (>60) Glucose Level 173 MG/DL (74-106) H Calcium Level 8.3 MG/DL (8.5-10.1) L Objective HEAD AND NECK: Positive JVD. LUNGS: Decreased breath sounds. CARDIOVASCULAR: Regular S1 and S2 with soft systolic murmur at the apex. ABDOMEN: Soft. EXTREMITIES: 1+ pitting edema. Eder Pandya MD November 15, 2017 13:23
--- NOTE | 2017-11-15 17:17 | Cardiology Report ---
APPROVED REPORT EKG Measurement Heart [id number] Normal sinus rhythm Possible Left atrial enlargement Incomplete right bundle branch block Borderline ECG
--- NOTE | 2017-11-16 03:15 | Discharge Summary ---
DATE OF ADMISSION: 11/13/2017 DATE OF DISCHARGE: 11/15/2017 REASON FOR ADMISSION: 1. Acute coronary syndrome/chest pain. 2. Volume overload/congestive heart failure. 3. Polysubstance abuse. HOSPITAL COURSE: The patient is a 52-year-old gentleman with a history of noncompliance. The patient states he has run out of medications from anywhere between 2 to 6 weeks. He has a customer advisor specialist at [facility] for his cardiomyopathy/CHF. He has known ejection fraction of approximately 25%. He came in mildly short of breath, no chest pain. Cardiology was consulted. The patient was diuresed appropriately, restarted on his blood pressure medications and did extremely well. The patient does admit to marijuana and amphetamine use/cocaine use. Pain management was consulted for evaluation of possibility of chronic pain syndrome. The patient was not deemed in any chronic pain or in any need of narcotics. The patient was stable on November 15 and pending discharge upon Cardiology clearance. DISCHARGE MEDICATIONS: 1. Coreg 6.25 mg by mouth twice a day. 2. Lisinopril 20 mg by mouth twice a day. 3. Lasix 20 mg by mouth twice a day. 4. Potassium chloride 40 mEq daily. CONSULTANTS: Cardiology, Eder Pandya M.D. DISCHARGE DISPOSITION: Stable. DISCHARGE DIAGNOSES: 1. Polysubstance abuse with marijuana and amphetamine use. 2. Chest pain due to polysubstance abuse. 3. Congestive heart failure, volume overload. DISPOSITION AND FOLLOWUP: 1. At this time, the patient is to continue to follow up and call his customer advisor specialist at [facility] to adjust the medications as deemed appropriate. 2. The patient has agreed to follow up with a primary care physician in one to two weeks post discharge at his discretion and choice. Temo Akhtar MD DR: BERTIN JOB#: [id number] CC:
== END 2017-11-15 14:15 | disposition home or self-care (01) | DRG 198 ==
LOC: EDBD 08:27 → EMR 08:50 → 2E 09:22 → EDBEDREQ 09:26
DX: I24.9 Acute ischemic heart disease, unspecified (principal); I11.0 Hypertensive heart disease with heart failure; I50.9 Heart failure, unspecified; F15.10 Other stimulant abuse, uncomplicated; F12.10 Cannabis abuse, uncomplicated; F17.200 Nicotine dependence, unspecified, uncomplicated; Z91.19 Patient's noncompliance with other medical treatment and regimen; F14.10 Cocaine abuse, uncomplicated
CPT/HCPCS: 36415; 71045; 80048; 80053; 80307; 82550; 82553; 83690; 83880; 84484; 85025; 93005; 99284; 99285; J8499

== ENCOUNTER 2018-12-04 22:08 | Emergency (ER) | payer MEDICAID ==
[~2018-12-04] VITALS: Ht 177.8 cm; Wt 95.3 kg
[2018-12-04] MEDS ORDERED: POTASSIUM CHLO10 MEQ ORAL (22:17)
[2018-12-04 22:25] VITALS: BP 128/79
[2018-12-04 23:43] LABS: BASOPHILS % (AUTO) 1.1 % (0.0-2.0); EOSINOPHILS % (AUTO) 1.9 % (0.0-3.0); HEMATOCRIT 43.9 % (42.0-52.0); HEMOGLOBIN 15.9 G/DL (14.2-18.0); LYMPHOCYTES % (AUTO) 26.2 % (20.0-45.0); MEAN CORPUSCULAR VOLUME 79 FL (80-99); NEUTROPHILS % (AUTO) 62.9 % (45.0-75.0); PLATELET COUNT 370 K/UL (150-450); WHITE BLOOD COUNT 10.3 K/UL (4.8-10.8)
[2018-12-05 00:01] LABS: ANION GAP 9 mmol/L (5-15); BLOOD UREA NITROGEN 36 mg/dL (7-18); CALCIUM 9.5 MG/DL (8.5-10.1); CARBON DIOXIDE 28 MMOL/L (21-32); CHLORIDE 99 MMOL/L (98-107); CREATININE 1.7 MG/DL (0.55-1.30); POTASSIUM 3.5 MMOL/L (3.5-5.1); SODIUM 136 MMOL/L (136-145)
[2018-12-05 00:14] LABS: ALANINE AMINOTRANSFERASE 27 U/L (12-78); ALBUMIN 3.6 G/DL (3.4-5.0); ALKALINE PHOSPHATASE 65 U/L (46-116); ASPARTATE AMINO TRANSFERASE 16 U/L (15-37); BILIRUBIN,TOTAL 1.1 MG/DL (0.2-1.0); CKMB 5.8 NG/ML (0.0-3.6); CREATINE KINASE 239 U/L (26-308)
[2018-12-05 00:20] VITALS: BP 112/70
[2018-12-05 00:24] LABS: BILIRUBIN,DIRECT 0.3 MG/DL (0.0-0.3)
[2018-12-05 01:30] VITALS: BP 118/69
[2018-12-05 02:30] VITALS: BP 120/67
--- NOTE | 2018-12-05 03:20 | Emergency Room Report ---
History of Present Illness General Chief Complaint: Chest Pain Source: Patient Present Illness HPI Patient 53-year-old male who presented for increased chest pain and difficulty with breathing. Patient a prior history of cardiomyopathy and congestive heart failure. He reports having run out of his medications lost his medications. Patient states that he previously had been on digoxin as well as Coreg and Lasix. He states that he has been having some increased shortness of breath. He reports having prior history of hypertension and also takes some antihypertensive medications. Allergies: Coded Allergies: No Known Allergies (Verified , 04/20/11) Patient History Past Medical History: see triage record Reviewed Nursing Documentation: PMH: Agreed; PSxH: Agreed Nursing Documentation-PMH Past Medical History: No History, Except For Hx Cardiac Problems: Yes - CHF Hx Hypertension: Yes Hx Cancer: No Hx Gastrointestinal Problems: No Hx Neurological Problems: No Review of Systems All Other Systems: negative except mentioned in HPI Physical Exam Vital Signs Date Time Temp Pulse Resp B/P (MAP) Pulse Ox O2 Delivery O2 Flow Rate FiO2 12/04/18 22:13 98.1 110 18 127/76 (93) Room Air 12/04/18 22:25 97 Sp02 EP Interpretation: reviewed, normal General Appearance: normal inspection, well appearing, no apparent distress, alert, GCS 15 Head: atraumatic ENT: normal ENT inspection, hearing grossly normal, normal voice Neck: normal inspection, full range of motion, supple, no bony tend Respiratory: normal inspection, lungs clear, normal breath sounds, no respiratory distress, no retraction, no wheezing Cardiovascular #1: regular rate, rhythm, no edema Gastrointestinal: normal inspection, normal bowel sounds, non tender, soft, no guarding, no hernia Genitourinary: no CVA tenderness Musculoskeletal: normal inspection, back normal, normal range of motion Neurologic: normal inspection, alert, oriented x3, responsive, employee counselor III-XII nml as tested, speech normal Psychiatric: normal inspection, judgement/insight normal, mood/affect normal Skin: normal inspection, normal color, no rash Medical Decision Making Diagnostic Impression: Primary Impression: ACS (acute coronary syndrome) ER Course . Patient presented for chest pain. Differential diagnosis include was not limited to pneumonia, pulmonary embolism, acute coronary syndrome, congestive heart failure among others. Because of complexity of patient's case laboratory testing and imaging studies were ordered. Patient was noted to have normal cardiac size without evident infiltrate on chest x-ray 1 view interpreted by me. EKG interpreted by me showed sinus tachycardia with a rate of [address] changes likely related to digoxin use.Patient was given aspirin. He was noted to be normotensive.Dr. Junior Sparks was contacted for inpatient management due to panel physician Labs Test 12/04/18 23:20 White Blood Count 10.3 K/UL (4.8-10.8) Red Blood Count 5.60 M/UL (4.70-6.10) Hemoglobin 15.9 G/DL (14.2-18.0) Hematocrit 43.9 % (42.0-52.0) Mean Corpuscular Volume 79 FL (80-99) Mean Corpuscular Hemoglobin 28.3 PG (27.0-31.0) Mean Corpuscular Hemoglobin Concent 36.1 G/DL (32.0-36.0) Red Cell Distribution Width 12.0 % (11.6-14.8) Platelet Count 370 K/UL (150-450) Mean Platelet Volume 6.4 FL (6.5-10.1) Neutrophils (%) (Auto) 62.9 % (45.0-75.0) Lymphocytes (%) (Auto) 26.2 % (20.0-45.0) Monocytes (%) (Auto) 8.0 % (1.0-10.0) Eosinophils (%) (Auto) 1.9 % (0.0-3.0) Basophils (%) (Auto) 1.1 % (0.0-2.0) Sodium Level 136 MMOL/L (136-145) Potassium Level 3.5 MMOL/L (3.5-5.1) Chloride Level 99 MMOL/L (98-107) Carbon Dioxide Level 28 MMOL/L (21-32) Anion Gap 9 mmol/L (5-15) Blood Urea Nitrogen 36 mg/dL (7-18) Creatinine 1.7 MG/DL (0.55-1.30) Estimat Glomerular Filtration Rate 51.4 mL/min (>60) Glucose Level 102 MG/DL (74-106) Calcium Level 9.5 MG/DL (8.5-10.1) Total Bilirubin 1.1 MG/DL (0.2-1.0) Direct Bilirubin 0.3 MG/DL (0.0-0.3) Aspartate Amino Transf (AST/SGOT) 16 U/L (15-37) Alanine Aminotransferase (ALT/SGPT) 27 U/L (12-78) Alkaline Phosphatase 65 U/L (46-116) Total Creatine Kinase 239 U/L (26-308) Creatine Kinase MB 5.8 NG/ML (0.0-3.6) Creatine Kinase MB Relative Index 2.4 Troponin I 0.013 ng/mL (0.000-0.056) Total Protein 7.2 G/DL (6.4-8.2) Albumin 3.6 G/DL (3.4-5.0) Globulin 3.6 g/dL Albumin/Globulin Ratio 1.0 (1.0-2.7) Lipase 112 U/L (73-393) EKG Diagnostic Results Rate: normal Rhythm: NSR ST Segments: no acute changes Last Vital Signs Date Time Temp Pulse Resp B/P (MAP) Pulse Ox O2 Delivery O2 Flow Rate FiO2 12/04/18 22:25 98.1 18 128/79 97 Room Air 12/04/18 22:25 112 Status: improved Disposition: ADMITTED INPATIENT Condition: Stable Referrals: NOT CHOSEN IPA/,REFERRING (PCP) Steve Colon MD Dec 05, 2018 03:20
[2018-12-05 03:30] VITALS: BP 118/75
[2018-12-05 05:00] VITALS: BP 112/72
[2018-12-05] MEDS ORDERED: FUROSEMIDE20 M1 ORAL (06:34)
[2018-12-05] MEDS ORDERED: COREG25 MG ORAL (06:34)
[2018-12-05] MEDS ORDERED: DIGOXIN125 MCG ORAL (06:34)
[2018-12-05] MEDS ORDERED: POTASSIUM CHLO10 MEQ ORAL (06:34)
[2018-12-05] MEDS ORDERED: Aspirin Baby 81mg NG SCH (09:00)
--- NOTE | 2018-12-05 15:23 | Cardiology Report ---
APPROVED REPORT EKG Measurement Heart [id number] Sinus tachycardia Possible Left atrial enlargement Borderline ECG
--- NOTE | 2018-12-05 16:50 | Diagnostic Imaging Report ---
Indication: Chest pain Technique: One view of the chest Comparison: 11/13/2017 Findings: Lungs and pleural spaces are clear. Heart size is normal. Previously noted pulmonary edema is no longer evident Impression: No acute process
== END 2018-12-05 06:30 | disposition left against medical advice (07) ==
LOC: EMR 22:31
DX: I24.9 Acute ischemic heart disease, unspecified (principal); I10 Essential (primary) hypertension; I11.0 Hypertensive heart disease with heart failure; I50.9 Heart failure, unspecified; Z79.899 Other long term (current) drug therapy
CPT/HCPCS: 36415; 71045; 80053; 82248; 82550; 82553; 83690; 84484; 85025; 93005; 99283

== ENCOUNTER 2019-05-02 03:04 | Emergency (ER) | payer MEDICAID ==
[~2019-05-02] VITALS: Ht 175.3 cm; Wt 72.6 kg
[~2019-05-02 03:04] MED LIST changes: +COREG25 MG ORAL; +DIGOXIN125 MCG ORAL; +POTASSIUM CHLO10 MEQ ORAL
[2019-05-02 03:20] VITALS: BP 148/93
--- NOTE | 2019-05-02 03:21 | NUR ---
ED Nurse Note: pt presents to ED c/o productive cough for 3-4 days, SOB and fever and chills for an unknown amount of time. pt reports having symptoms of sepsis and refers to a brochure that he has on sepsis. pt denies being in any pain and denies ever experiencing symptoms like this. Addendum: 05/02/19 at 0325 by DOMINIC pt states he is homeless and has not been able to fill his meds.
[2019-05-02] MEDS ORDERED: POTASSIUM CHLO20 ME1 ORAL (03:43)
--- NOTE | 2019-05-02 03:44 | Emergency Room Report ---
History of Present Illness General Chief Complaint: General Complaint Source: Patient Present Illness HPI 53-year-old male with a history of cardiomyopathy with CHF. Also history of methamphetamine abuse. He presents with chief complaint of I have sepsis. He said he is I have short of breath and chronic back pain. He said he is coughing up some sputum. He had a page out of a small booklet regarding sepsis. He said that he has been out of his medication for a week. Denies any fever chills but denies any nausea or vomiting. Nothing made it better. Nothing made it worse. When I press him more on the his symptoms of sepsis, he got agitated and was very vague with his history. He does not look to be fluid overloaded so I asked him which hospital he was in lately. Initially told me he went to the hospital a week ago. When I asked him how come he did not have any prescription for medication if he went to the hospital, he said that they did not give him any. When I further question where he was recently since I saw JULISA lobato on him, he said he was at [facility]. He told me that they did not give him any medication and he left there. Allergies: Coded Allergies: No Known Allergies (Verified , 04/20/11) Patient History Past Medical History: see triage record, old chart reviewed, HTN, CAD, CHF Past Surgical History: other Pertinent Family History: none Social History: Reports: drug use Immunizations: other Reviewed Nursing Documentation: PMH: Agreed; PSxH: Agreed Nursing Documentation-PMH Hx Cardiac Problems: Yes - CHF Hx Hypertension: Yes Hx Cancer: No Hx Gastrointestinal Problems: No Hx Neurological Problems: No Review of Systems Eye: Denies: eye pain, blurred vision ENT: Denies: ear pain, nose congestion, throat swelling Respiratory: Denies: cough, shortness of breath Cardiovascular: Denies: chest pain, palpitations Gastrointestinal: Denies: abdominal pain, diarrhea, nausea, vomiting Musculoskeletal: Denies: back pain, joint pain Skin: Denies: rash Neurological: Denies: headache, numbness Endocrine: Denies: increased thirst, increased urine Hematologic/Lymphatic: Denies: easy bruising All Other Systems: negative except mentioned in HPI Physical Exam Vital Signs Date Time Temp Pulse Resp B/P (MAP) Pulse Ox O2 Delivery O2 Flow Rate FiO2 05/02/19 03:07 97.9 95 16 148/93 (111) 100 Room Air Vitals unremarkable Sp02 EP Interpretation: reviewed, normal General Appearance: well appearing, no apparent distress, alert Head: normocephalic, atraumatic Eyes: bilateral eye PERRL, bilateral eye EOMI ENT: hearing grossly normal, normal pharynx Neck: full range of motion, supple, no meningismus Respiratory: chest non-tender, lungs clear, normal breath sounds Cardiovascular #1: regular rate, rhythm, no murmur Gastrointestinal: normal bowel sounds, non tender, no mass, no organomegaly, no bruit, non-distended Musculoskeletal: back normal, gait/station normal, normal range of motion Psychiatric: mood/affect normal Medical Decision Making Diagnostic Impression: Primary Impression: Encounter for medication refill Additional Impression: Substance abuse ER Course Patient presents with vague symptoms. He has no clinical evidence of sepsis. He has no evidence of fluid overloaded. Lungs are clear. No pedal edema. He has no fever or tachycardia. No hypotension. He was hiding and armband from [facility] it in his pocket. I called [facility] and spoke with Dr. Ortiz saw this patient. She actually saw him yesterday. He was discharged about 10 hours ago. He was there most 24 hours. Blood work was unremarkable. Negative troponin. Negative EKG. She wrote for refills on his medication. She says she forgot the potassium. Patient saw social service assistant who will arrange for [facility]cc for the patient. When I brought this up to the patient, he denies any of it. He told me that he walk from [facility] to here just now. He said he took him 20 minutes. This is an impossibility. I see no further work-up. Will discharge the patient with prescription for potassium. Last Vital Signs Date Time Temp Pulse Resp B/P (MAP) Pulse Ox O2 Delivery O2 Flow Rate FiO2 05/02/19 03:20 97.9 16 148/93 100 Room Air 05/02/19 03:07 95 Status: unchanged Disposition: HOME, SELF-CARE Condition: Stable Scripts Potassium Chloride* (K-DUR*) 20 Meq Tab.er.prt 20 MEQ ORAL DAILY, #30 TAB 0 Refills Prov: Ellis Gordon MD 05/02/19 Additional Instructions: Stop using drugs. Fill the prescriptions written by Dr. Ortiz from [facility]. Follow-up with your doctor in 7 days. Return if worse. Ellis Gordon MD May 02, 2019 03:44
--- NOTE | 2019-05-02 04:00 | NUR ---
ED Nurse Note: pt is lying in bed with eyes closed. does not appear to be in any distress at this time, will continue to monitor
--- NOTE | 2019-05-02 04:16 | NUR ---
ED Nurse Note: pt reports that he is coughing up mucus which he read is a symptom of sepsis and is asking why we are not treating him. ADAN explained to pt that we will d/c pt in morning because he was seen at [facility] 10 hours ago and his labwork was negative.
--- NOTE | 2019-05-02 05:31 | NUR ---
ED Nurse Note: pt provided home address for discharge
[2019-05-02 05:47] VITALS: BP 152/97
--- NOTE | 2019-05-02 05:47 | NUR ---
ED Nurse Note: Pt cleared by health care Provider for discharge. DC instructions/prescription was given and explained to pt and verbalized understanding of teachings. All medical devices such as ID band removed. Pt is AAO x4, ambulatory and left with all personal belongings.
== END 2019-05-02 05:45 | disposition home or self-care (01) ==
LOC: EMR 03:30
DX: Z76.0 Encounter for issue of repeat prescription (principal); F19.10 Other psychoactive substance abuse, uncomplicated; I10 Essential (primary) hypertension; I25.10 Atherosclerotic heart disease of native coronary artery without angina pectoris; I50.9 Heart failure, unspecified
CPT/HCPCS: 99282